=== PATIENT | male | born 1980 | race Two or more races ===

== ENCOUNTER 2018-05-24 07:52 | Outpatient (CLI) | payer OTHER ==
[~2018-05-24 07:52] MED LIST: ADVIL100 MG; CRESTOR5 MG; DEMEBORO OT; OSEL75CA PO; PRILOSEC20 MG PO; SYNTHROID100 MCG; TOBREX5 ML OP; ZYRTEC10 MG PO
== END 2018-05-24 08:08 | disposition home or self-care (01) ==
LOC: SONOGRAMA 07:52
DX: S56.012A Strain of flexor muscle, fascia and tendon of left thumb at forearm level, initial encounter (principal); E04.8 Other specified nontoxic goiter; E05.80 Other thyrotoxicosis without thyrotoxic crisis or storm